=== PATIENT | male | born 1965 | race Caucasian/White ===

== ENCOUNTER → 2023-05-27 15:45 | Outpatient (CLI) | payer OTHER, SELFPAY ==
--- NOTE | 2023-05-27 | DI.US.S_ITS ---
PROCEDURE: US RENAL COMPLETE INDICATIONS: RIGHT FLANK PAIN TECHNIQUE: Real-time scanning was performed of the kidneys and bladder, with image documentation. COMPARISON: None. FINDINGS: Kidneys: Kidneys are normal in size. Right kidney measures 12.8 cm long; left kidney measures 12.5 cm long. Right renal cortical thickness is 1.5 cm; left renal cortical thickness is 1.7 cm. Renal cortical echotexture is normal. No hydronephrosis or nephrolithiasis. No suspicious solid mass lesions. Bladder: Pre-void bladder volume is 661 mL. Post-void residual is 44 mL. Pre-void images demonstrate no intraluminal masses or stones. On pre-void images, bilateral ureteral jets are noted with color Doppler interrogation. (Of note, ureteral jets may not be detectable in up to 25% of cases due to insufficient differences in specific gravity between ureteral and bladder urine). Miscellaneous: No free pelvic fluid. Included liver is diffusely increased in echogenicity. IMPRESSION: 1. No hydronephrosis or nephrolithiasis. 2. Visualized liver is increased in echogenicity, non-specific but most commonly seen in setting of diffuse fatty infiltration. Approved by: Romero Patel M.D. on 05/27/2023 at 20:02
== END ==
PROVIDERS: Family Provider Family Medicine; PCP Family Medicine; Referring Provider Family Medicine; Visit Provider Family Medicine
DX: R10.9 Unspecified abdominal pain (principal)
CPT/HCPCS: 76770